=== PATIENT | male | born 1980 | race Two or more races ===

== ENCOUNTER 2018-09-18 21:18 | Emergency (ER) | payer MEDICAID, OTHER ==
[~2018-09-18] VITALS: Ht 185.4 cm; Wt 74.8 kg
[2018-09-18 21:47] VITALS: BP 153/99
[2018-09-18 22:56] LABS: Urine Bacteria NONE SEEN /hpf (None Seen); Urine Blood Negative /uL (Negative); Urine Mucus FEW (None Seen); Urine Specific Gravity 1.021 (1.001-1.035); Urine WBC <1 /hpf (0 - 3)
[2018-09-18] MEDS ORDERED: cefTRIAXone SOD 1,000 MG VL IM ONE (23:15)
[2018-09-18] MEDS ORDERED: AZITHROMYCIN 250 MG TAB PO ONE (23:15)
== END 2018-09-19 00:55 | disposition home or self-care (01) ==
LOC: ER 21:23
DX: Z20.2 Contact with and (suspected) exposure to infections with a predominantly sexual mode of transmission (principal); F17.210 Nicotine dependence, cigarettes, uncomplicated
CPT/HCPCS: 81001; 96372; 99283; J0696

== ENCOUNTER 2021-05-02 12:44 | Emergency (ER) | payer MEDICAID ==
[~2021-05-02] VITALS: Ht 182.9 cm; Wt 74.8 kg
[2021-05-02 12:46] VITALS: BP 103/65
[2021-05-02] MEDS ORDERED: KETOROLAC TROMETH 30 MG/ML 1ML VIAL IV ONE (16:45)
[2021-05-02] MEDS ORDERED: DOXYCYCLINE 100 MG TAB/CAP PO ONE (16:45)
[2021-05-02] MEDS ORDERED: SODIUM CHLORIDE 0.9% 1,000 ML IV ONE (16:45)
[2021-05-02 18:29] LABS: Basophils # (auto) 0.1 10 ^3/uL (0-0.2); Basophils % (auto) 0.7 % (0.0-2.0); Eosinophils # (auto) 0.1 10 ^3/uL (0-0.8); Hemoglobin 10.4 g/dL (13.5-17.5); Lymphocytes # (auto) 0.8 10 ^3/uL (0.4-5.4); Lymphocytes % (auto) 8.3 % (10.0-50.0); Monocytes # (auto) 0.7 10 ^3/uL (0-1.3); Monocytes % (auto) 7.7 % (0.0-12.0)
[2021-05-02 18:31] LABS: Eosinophils % (auto) 1.1 % (0.0-7.0); Hematocrit 31.9 % (41.0-53.0); Mean Corpuscular Hemoglobin 27.5 pg (28.0-32.0); Mean Corpuscular Hgb Conc. 32.5 g/dL (32.0-36.0); Mean Corpuscular Volume 84.5 fL (80.0-100.0); Neutrophils # (auto) 7.8 10 ^3/uL (1.6-8.6); Neutrophils % (auto) 82.2 % (37.0-80.0); Red Blood Cells 3.77 10^6/uL (4.5-5.90); White Blood Cell 9.5 10^3/uL (4.4-10.8)
[2021-05-02 18:54] LABS: Calcium 9.2 mg/dL (8.5-10.1); Potassium 4.5 mmol/L (3.5-5.1)
[2021-05-02 19:03] LABS: BUN/Creatinine Ratio 18.4; CRP High Sensitivity 11.8 mg/dL (< 0.3)
[2021-05-02] MEDS ORDERED: IOHEXOL 300 MG/ML 100ML BOTTLE IJ ONE (19:03)
[2021-05-02] MEDS ORDERED: DOXY-286 PO (23:31)
== END 2021-05-03 00:06 | disposition left against medical advice (07) ==
LOC: ER 12:44
DX: L03.116 Cellulitis of left lower limb (principal); L03.115 Cellulitis of right lower limb; D75.838 Other thrombocytosis; F17.210 Nicotine dependence, cigarettes, uncomplicated
CPT/HCPCS: 36415; 71046; 71260; 80048; 83605; 85025; 86141; 87040; 93005; 93970; 96374; 99285; J1885; Q9967

== ENCOUNTER 2021-11-06 02:29 | Emergency (ER) | payer MEDICAID ==
[~2021-11-06] VITALS: Ht 185.4 cm; Wt 74.8 kg
[2021-11-06 03:04] LABS: Urine Bacteria FEW /hpf (None Seen); Urine Blood TRACE /uL (Negative); Urine Mucus FEW (None Seen); Urine Specific Gravity 1.028 (1.001-1.035); Urine WBC 597 /hpf (0 - 3); Urine WBC Clumps PRESENT /hpf (None Seen)
[2021-11-06] MEDS ORDERED: PERCOT PO (05:18)
[2021-11-06] MEDS ORDERED: DOXY-340 PO (05:18)
[2021-11-06 06:46] VITALS: BP 115/73
== END 2021-11-06 06:47 | disposition home or self-care (01) ==
LOC: ER 02:33
DX: N45.1 Epididymitis (principal); R30.0 Dysuria; F17.210 Nicotine dependence, cigarettes, uncomplicated
CPT/HCPCS: 76870; 81001

== ENCOUNTER 2022-03-02 16:22 | Emergency (ER) | payer MEDICAID ==
[~2022-03-02] VITALS: Ht 185.4 cm; Wt 75.5 kg
[~2022-03-02 16:22] MED LIST: DOXY-340 PO; PERCOT PO
[2022-03-02 16:40] VITALS: BP 115/76
[2022-03-02] MEDS ORDERED: KETOROLAC TROMETH 60MG/2ML VIAL IM ONE (17:15)
== END 2022-03-02 21:40 | disposition left against medical advice (07) ==
LOC: ER 16:22
DX: N48.89 Other specified disorders of penis (principal)
CPT/HCPCS: 96372; 99283; J1885

== ENCOUNTER 2022-03-07 05:35 | Emergency (ER) | payer MEDICAID ==
[~2022-03-07] VITALS: Ht 185.4 cm; Wt 76.0 kg
[2022-03-07 05:35] VITALS: BP 159/87
[2022-03-07] MEDS ORDERED: CLIN300C8 PO (08:35)
[2022-03-07] MEDS ORDERED: AMOX500T86 PO (08:35)
== END 2022-03-07 14:32 | disposition left against medical advice (07) ==
LOC: ER 05:35
DX: N45.1 Epididymitis (principal); F17.210 Nicotine dependence, cigarettes, uncomplicated; Z79.2 Long term (current) use of antibiotics; Z79.899 Other long term (current) drug therapy
CPT/HCPCS: 76870

== ENCOUNTER 2025-04-13 11:54 | Emergency (ER) | payer MEDICAID ==
[~2025-04-13] VITALS: Ht 185.4 cm; Wt 77.5 kg
[~2025-04-13 11:54] MED LIST changes: +AMOX500T86 PO; +CLIN1CAP70 PO; -DOXY-340 PO; +DOXY1CAP57 PO
[2025-04-13 11:58] VITALS: BP 128/69; PULSE 99; RESP 15; O2SAT 99
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
[2025-04-13] MEDS ORDERED: IBUP-1456 PO (14:10)
[2025-04-13] MEDS ORDERED: CEPH500C PO (14:10)
[2025-04-13 14:11] VITALS: TEMP 98.5
[2025-04-13] MEDS: ACETAMINOPHEN 500 MG TAB or CAP PO ONE (14:11)
[2025-04-13] MEDS: TETANUS-DIPTH-ACEL PERTUSSIS 0.5ML SYR Tdap IM ONE (14:14)
[2025-04-13] MEDS: cefTRIAXone SOD 1,000 MG VL IM ONE (14:23)
== END 2025-04-13 14:27 | disposition home or self-care (01) ==
LOC: ER 11:54
DX: S70.211A Abrasion, right hip, initial encounter (principal); S50.312A Abrasion of left elbow, initial encounter; S50.311A Abrasion of right elbow, initial encounter; S00.81XA Abrasion of other part of head, initial encounter; S80.212A Abrasion, left knee, initial encounter; S81.832A Puncture wound without foreign body, left lower leg, initial encounter; G44.319 Acute post-traumatic headache, not intractable; F17.210 Nicotine dependence, cigarettes, uncomplicated; V89.2XXA Person injured in unspecified motor-vehicle accident, traffic, initial encounter; Y93.89 Activity, other specified; Y92.410 Unspecified street and highway as the place of occurrence of the external cause; Y99.8 Other external cause status
CPT/HCPCS: 70450; 73590; 90471; 90715; 96372; 99285; J0696

== ENCOUNTER 2025-04-20 21:28 | Inpatient (IN) | payer MEDICAID ==
[~2025-04-20] VITALS: Ht 185.4 cm; Wt 79.7 kg
[~2025-04-20 21:28] MED LIST changes: +CEPH500C PO; +IBUP-1456 PO
[2025-04-20 22:10] LABS: Hematocrit 37.5 % (41.0-53.0); Hemoglobin 12.7 g/dL (13.5-17.5); Mean Corpuscular Hemoglobin 28.3 pg (28.0-32.0); Mean Corpuscular Volume 83.7 fL (80.0-100.0); Nucleated Red Blood Cells % 0.0 %
[2025-04-20 22:16] LABS: Alanine Aminotransferase 19 U/L (7-40); Albumin 4.4 g/dL (3.2-4.8); Alkaline Phosphatase 109 U/L (46-116); Anion Gap 8 (5-15); BUN/Creatinine Ratio 13.7 (10.0-20.0); Blood Urea Nitrogen 16 mg/dL (9-23); Calcium 9.2 mg/dL (8.7-10.4); Carbon Dioxide 29 mmol/L (20-31); Chloride 104 mmol/L (98-107); Potassium 3.8 mmol/L (3.5-5.1); Sodium 141 mmol/L (136-145); Total Protein 7.4 g/dL (5.7-8.2)
[2025-04-20 22:17] LABS: Bilirubin, Total 0.4 mg/dL (0.2-1.0)
[2025-04-20 22:21] LABS: Glucose 114 mg/dL (74-106)
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
--- NOTE | 2025-04-20 23:11 | DVH ---
CLINICAL INDICATION: Left lower extremity pain, swelling, erythema TECHNIQUE: XY L TIB FIB XRAY Comparison: XY L TIB FIB XRAY on DOS: 04/13/25 FINDINGS/IMPRESSION: : There is no evidence of acute fracture or dislocation. Soft tissues are unremarkable.
--- NOTE | 2025-04-20 23:13 | DVH ---
Left lower extremity venous duplex Clinical History: Lower extremity edema, tenderness, erythema Comparison: BI LOWER DVT on DOS: 05/02/21 Technique: Duplex Doppler evaluation of the deep venous system of the left lower extremity from the common femor al vein to the popliteal vein including color Doppler and spectral/pulsed waveform analysis was perfo rmed. Findings: The common femoral vein demonstrates appropriate compressibility and waveform variability. There is compressibility/patency of the great saphenous vein at the proximal thigh. The femoral vein demonstrates appropriate compressibility and waveform variability. The deep femoral vein demonstrates appropriate compressibility and waveform variability. The popliteal vein demonstrates appropriate compressibility and waveform variability. There is normal compressibility at the tibioperoneal trunk. Prominent inguinal lymph node measures 2.4 x 1.9 x 1.0 cm. Impression: 1. No left femoropopliteal venous thrombosis. 2. Prominent left inguinal lymph node.
[2025-04-20] MEDS ORDERED: TEMAZEPAM 15 MG CAP PO PRN (23:45)
[2025-04-20] MEDS ORDERED: ACETAMINOPHEN 325 MG TAB PO PRN (23:45)
[2025-04-20] MEDS ORDERED: ONDANSETRON HCL 4 MG/2 ML VIAL IV PRN (23:45)
[2025-04-21] VITALS (7 sets, daily range): BP systolic 107–148; BP diastolic 74–93; PULSE 62–83; RESP 16–18; TEMP 97.5–98.3; O2SAT 98–100
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
[2025-04-21] MEDS ORDERED: VANCOMYCIN PER PHARMACY 0 MG IV SCH (00:45)
[2025-04-21] MEDS: KETOROLAC TROMETH 30 MG/ML 1ML VIAL IV ONE (01:20)
[2025-04-21] MEDS: VANCOMYCIN 1GM/250ML KIT 250 ML IV ONE (01:33)
[2025-04-21] MEDS: PIPERACILLIN-TAZOB 3.375GM 100 ML IV ONE (03:19)
[2025-04-21] MEDS: HYDROcodone-ACET 5/325MG TAB PO PRN (05:23)
[2025-04-21] MEDS ORDERED: CLINDAMYCIN 600MG IV 50 ML IV SCH (06:00)
[2025-04-21] MEDS: CEFEPIME 1GM/50ML 50 ML IV SCH (06:09)
[2025-04-21 06:50] LABS: Hematocrit 35.8 % (41.0-53.0); Hemoglobin 12.4 g/dL (13.5-17.5); Mean Corpuscular Hemoglobin 28.8 pg (28.0-32.0); Mean Corpuscular Volume 83.4 fL (80.0-100.0); Nucleated Red Blood Cells % 0.2 %
[2025-04-21] MEDS: VANCOMYCIN 1.25GM/250ML 250 ML IV SCH (13:19)
[2025-04-21] MEDS: KETOROLAC TROMETH 30 MG/ML 1ML VIAL IV PRN (21:34)
[2025-04-22 00:59] VITALS: BP 136/85; PULSE 66; RESP 14; TEMP 98; O2SAT 97
[2025-04-22 05:00] VITALS: BP 115/80; PULSE 64; RESP 16; TEMP 98.1; O2SAT 98
[2025-04-22 08:40] VITALS: BP 116/76; PULSE 79; RESP 19; TEMP 98.1; O2SAT 97
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
[2025-04-22 12:50] VITALS: BP 123/81; PULSE 71; RESP 19; TEMP 98.4; O2SAT 97
[2025-04-22 16:30] VITALS: BP 122/80; PULSE 89; RESP 18; TEMP 98.4; O2SAT 97
[2025-04-22 21:00] VITALS: BP 125/88; PULSE 77; RESP 20; TEMP 97.8; O2SAT 97
[2025-04-22] MEDS: VANCOMYCIN 1.25GM/250ML 250 ML IV SCH (21:44)
[2025-04-23 01:00] VITALS: BP 151/95; PULSE 75; RESP 20; TEMP 98; O2SAT 99
[2025-04-23 05:00] VITALS: BP 138/89; PULSE 73; RESP 20; TEMP 97.7; O2SAT 98
[2025-04-23 08:00] VITALS: PULSE 77; RESP 18
[2025-04-23 08:55] VITALS: BP 124/79; PULSE 77; RESP 18; TEMP 97.7; O2SAT 98
[2025-04-23] MEDS ORDERED: AUG875T PO (11:01)
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
[2025-04-23 11:28] VITALS: BP 124/79; PULSE 77; RESP 18; TEMP 97.7; O2SAT 98
== END 2025-04-23 12:15 | disposition home or self-care (01) | DRG 383 ==
LOC: ER 21:28 → OVERFLOW 23:37 → WEST WING 23:56
PROVIDERS: ADMIT Internal Medicine Geriatric Medicine; ATTEND Internal Medicine Geriatric Medicine
DX: L03.116 Cellulitis of left lower limb (principal); F17.210 Nicotine dependence, cigarettes, uncomplicated
CPT/HCPCS: 36415; 73590; 80053; 80202; 82565; 83605; 85025; 87040; 93971; 96365; G0378; J1885; J2543